=== PATIENT | male | born 1970 | race Caucasian/White ===

== ENCOUNTER 2018-11-22 15:35 | Emergency (ER) | payer MEDICAID, OTHER ==
[~2018-11-22] VITALS: Ht 182.9 cm; Wt 171.0 kg
--- NOTE | 2018-11-22 15:49 | NUR ---
PT BIBRA FROM HOME FOR "RECTAL BLEEDING" AND SOB; PT AAOX4, NAD NOTED, PT TO BED 8, MD AT BEDSIDE FORE GOPAL
[2018-11-22 16:14] LABS: BASOPHILS # (AUTO) 0.1 /CMM (0.0-0.2); EOSINOPHILS % (AUTO) 3.2 % (0.0-6.0); HEMATOCRIT 39 % (39-51); HEMOGLOBIN 13.8 g/dL (13.5-17.5); LYMPHOCYTES # (AUTO) 1.6 /CMM (0.8-4.8); MEAN CORPUSCULAR HGB CONC 35 g/dl (31.0-36.0); MEAN CORPUSCULAR VOLUME 87 fL (80-96); MONOCYTES # (AUTO) 0.4 /CMM (0.1-1.30); MONOCYTES % (AUTO) 6.7 % (2.0-12.0); NEUTROPHILS # (AUTO) 3.3 /CMM (1.8-8.9); NEUTROPHILS % (AUTO) 60.1 % (43.0-81.0); PLATELET COUNT (AUTO) 199 /CMM (150-450); WHITE BLOOD COUNT (AUTO) 5.5 K/uL (4.3-11.0)
[2018-11-22 16:25] LABS: CALCIUM, SERUM 8.4 mg/dL (8.5-10.1); CARBON DIOXIDE 24 mmol/L (21-32); CHLORIDE 105 mmol/L (98-107); CREATININE 0.7 mg/dL (0.6-1.3); GLUCOSE 135 mg/dL (74-106); POTASSIUM 3.5 mmol/L (3.5-5.1); SODIUM SERUM 140 mmol/L (136-145); UREA NITROGEN, BLOOD 11 mg/dL (7-18)
[2018-11-22 16:31] LABS: ALANINE AMINOTRANSFERASE 37 U/L (12-78); ALBUMIN 3.7 g/dL (3.4-5.0); ALKALINE PHOSPHATASE 64 U/L (46-116); ASPARTATE AMINOTRANSFERASE 24 U/L (15-37); BILIRUBIN,TOTAL 0.3 mg/dL (0.2-1.0); LIPASE 188 U/L (73-393)
[2018-11-22 16:37] LABS: ABG BASE EXCESS -2.6 mmol/L; ABG OXYGEN SATURATION 95.6 % (92.0-98.5); ABG PH 7.381 (7.350-7.450); ABG PO2 88.2 mmHg (75.0-100.0); AaDO2 95.5 mmHg; COHb 4.4 % (0.5-1.5); MetHb 0.4 % (0.0-1.5); SITE, ABG Right Radial; VENT MODE, BG NASAL CANNULA
[2018-11-22] MEDS ORDERED: VALS1TAB6 PO (16:45)
[2018-11-22 17:20] LABS: ALCOHOL, BLOOD 197 mg/dL (0-0); B-TYPE NATRIURETIC PEPTIDE 14 PG/ML (0-125)
[2018-11-22 18:00] VITALS: BP 100/60
--- NOTE | 2018-11-22 18:38 | NUR ---
Patient discharged to home in stable condition. Written and verbal after care instructions given. Patient verbalizes understanding of instruction. IV removed. Catheter intact and site benign. Pressure and 4x4 applied to site. No bleeding noted.
--- NOTE | 2018-11-22 18:39 | NUR ---
PER PT, ALL HIS CLOTHES WERE CUT BY PARAMEDICS WHEN HE WAS BROUGHT IT, SON WILL BRING HIM CLOTHES, PT IS READY FOR DISCHARGE, PT WILL BE WAITING IN ROOM UNTIL SON IS ABLE TO PICK HIM UP
== END 2018-11-22 19:16 | disposition home or self-care (01) ==
LOC: ER 15:40
DX: G47.33 Obstructive sleep apnea (adult) (pediatric) (principal); F10.129 Alcohol abuse with intoxication, unspecified; Y90.6 Blood alcohol level of 120-199 mg/100 ml
CPT/HCPCS: 36415; 36600; 71045-TC; 80048-TC; 80076-TC; 82803-TC; 83690-TC; 83880; 84484-TC; 85025-TC; 85730-TC; G0480

== ENCOUNTER 2019-02-21 14:22 | Emergency (ER) | payer OTHER ==
[~2019-02-21] VITALS: Ht 177.8 cm; Wt 148.3 kg
[~2019-02-21 14:22] MED LIST: VALS1TAB6 PO
--- NOTE | 2019-02-21 14:36 | NUR ---
[id number], FROM HOME, ALCOHOL INTOXICATED, PT STATES HE DRUNK WHISKEY. PT SCREAMING, VSS. RR EVEN & UNLABORED. DR. WHITE @ BS FOR EVAL. WILL CONT TO MONITOR.
[2019-02-21] MEDS ORDERED: IV NS 0.9% 1,000 ML BAG IV ONE (15:00)
[2019-02-21] MEDS ORDERED: LORAZEPAM INJ 2 MG/ML VIAL IV ONE (15:00)
[2019-02-21 15:01] LABS: BASOPHILS # (AUTO) 0.1 /CMM (0.0-0.2); BASOPHILS % (AUTO) 0.8 % (0.0-2.0); EOSINOPHILS % (AUTO) 3.2 % (0.0-6.0); HEMATOCRIT 41 % (39-51); MEAN CORPUSCULAR HGB CONC 35 g/dl (31.0-36.0); MEAN CORPUSCULAR VOLUME 88 fL (80-96); MONOCYTES # (AUTO) 0.4 /CMM (0.1-1.30); MONOCYTES % (AUTO) 5.2 % (2.0-12.0); NEUTROPHILS # (AUTO) 4.4 /CMM (1.8-8.9); NEUTROPHILS % (AUTO) 53.8 % (43.0-81.0); PLATELET COUNT (AUTO) 227 /CMM (150-450); WHITE BLOOD COUNT (AUTO) 8.1 K/uL (4.3-11.0)
[2019-02-21 15:28] LABS: ALANINE AMINOTRANSFERASE 15 U/L (12-78); ALBUMIN 3.6 g/dL (3.4-5.0); ALKALINE PHOSPHATASE 61 U/L (46-116); ASPARTATE AMINOTRANSFERASE 15 U/L (15-37); BILIRUBIN,DIRECT 0.1 mg/dL (0.0-0.2); BILIRUBIN,TOTAL 0.3 mg/dL (0.2-1.0); CALCIUM, SERUM 8.8 mg/dL (8.5-10.1); CARBON DIOXIDE 25 mmol/L (21-32); CHLORIDE 105 mmol/L (98-107); CREATININE 0.7 mg/dL (0.6-1.3); GLUCOSE 130 mg/dL (74-106); SODIUM SERUM 142 mmol/L (136-145); TOTAL PROTEIN, SERUM 7.1 g/dL (6.4-8.2); UREA NITROGEN, BLOOD 8 mg/dL (7-18)
--- NOTE | 2019-02-21 16:24 | NUR ---
Patient discharged to home in stable condition. Written and verbal after care instructions given [facility] MEM[facility]ERS. FAMILY MEMBERS verbalizes understanding of instruction. IV removed. Catheter intact and site benign. Pressure and 4x4 applied to site. No bleeding noted.
[2019-02-21 16:25] VITALS: BP 128/74
== END 2019-02-21 16:25 | disposition home or self-care (01) ==
LOC: ER 14:27
DX: F10.129 Alcohol abuse with intoxication, unspecified (principal); R55 Syncope and collapse; Z79.899 Other long term (current) drug therapy; Y90.6 Blood alcohol level of 120-199 mg/100 ml
CPT/HCPCS: 36415; 70450; 71045; 80048; 80076; 80307; 84484; 85025; 85730; 93005; 96360; 99284; J7030 ×2; G0480